=== PATIENT | male | born 1950 | race Caucasian/White ===

== ENCOUNTER 2022-03-25 20:42 | Observation (INO) | payer OTHER ==
[2022-03-25 21:07] VITALS: BMI 32.6
[2022-03-25 23:23] LABS: BASO % 0.7 % (0-2.0); EOS % 2.3 % (0-4.5); HEMATOCRIT 52.5 % (35.4-49); HEMOGLOBIN 17.8 GM/dL (11.7-16.9); LYMPH % 20.8 % (8-40); MCHC 33.9 g/dl (32.0-35.9); MEAN CELL VOLUME 85.8 fl (80-96); MEAN PLT VOLUME 8.4 fl (7.5-11.1); MONO % 8.8 % (3.8-10.2); NEUT % 67.4 % (42.8-82.8); PLATELET COUNT 452 10^3/uL (134-434); RBC 6.12 M/mm3 (4.00-5.60); RDW 14.1 % (11.9-15.9); WHITE BLOOD COUNT 10.2 K/mm3 (4.0-10.0)
[2022-03-25 23:32] LABS: INR 0.93 (0.83-1.09); PROTHROMBIN TIME (PATIENT) 10.7 SEC (9.7-13.0)
[2022-03-25 23:35] LABS: ACTIVATED PTT 34.1 SECONDS (25.2-36.5)
[2022-03-25] MEDS ORDERED: IBUPROFEN 400 MG TABLET (FP) PO ONE (23:41)
[2022-03-25] MEDS ORDERED: GABAPENTIN 400 MG CAPSULE PO ONE (23:41)
[2022-03-25 23:44] LABS: CALCIUM 10.2 mg/dL (8.5-10.1)
[2022-03-25 23:45] LABS: ALBUMIN 3.9 g/dl (3.4-5.0)
[2022-03-25 23:48] LABS: CREATININE 1.1 mg/dL (0.55-1.3)
[2022-03-25 23:49] LABS: BILIRUBIN,TOTAL 0.4 mg/dL (0.2-1); TOT PROT 7.4 g/dl (6.4-8.2)
[2022-03-25 23:54] LABS: BLOOD UREA NITROGEN 19.7 mg/dL (7-18)
[2022-03-25] MEDS ORDERED: ASPIRIN 81 MG CHEWABLE TABLETS PO ONE (23:58)
[2022-03-26] MEDS ORDERED: FOLIC ACID INJECTION - 1 MG, THIAMINE HCL 100 MG, MULTIVIT INJECTION ADULT 10 ML in SOD... IVPB ONE (00:05)
[2022-03-26] MEDS ORDERED: IBUPROFEN 400 MG TABLET (FP) PO ONE (00:05)
[2022-03-26] MEDS ORDERED: GABAPENTIN 400 MG CAPSULE ONE (00:06)
[2022-03-26] MEDS ORDERED: ASPIRIN 81 MG CHEWABLE TABLETS ONE (00:07)
[2022-03-26 00:28] LABS: PH,URINE 7.5 (5.0-8.0); URINE APPEARANCE Error; URINE BILIRUBIN NEGATIVE (NEGATIVE); URINE COLOR YELLOW; URINE GLUCOSE (UA) NEGATIVE (NEGATIVE); URINE KETONE NEGATIVE (NEGATIVE); URINE LEUK ESTERASE NEGATIVE (NEGATIVE); URINE NITRITE NEGATIVE (NEGATIVE); URINE PROTEIN NEGATIVE (NEGATIVE); URINE UROBILINOGEN 0.2 mg/dL (0.2-1.0)
[2022-03-26] MEDS ORDERED: CEFTRIAXONE 1 GM/50 ML BAG ONE (02:33)
[2022-03-26] MEDS ORDERED: SODIUM CHLORIDE 0.45% 1,000 ML IV SCH (03:00)
[2022-03-26] MEDS: ENOXAPARIN NA (PORCINE) 40 MG/0.4 ML DISP.SYRIN SQ SCH (09:38)
[2022-03-26 11:13] LABS: COCAINE, UR NEGATIVE (NEGATIVE); OPIATES, URI NEGATIVE (NEGATIVE); PHENCYCLIDINE,URINE NEGATIVE (NEGATIVE); URINE BARBITURATES NEGATIVE (NEGATIVE); URINE BENZODIAZEPINES NEGATIVE (NEGATIVE)
[2022-03-26 11:18] LABS: METHADONE, UR NEGATIVE (NEGATIVE); URINE AMPHETAMINES NEGATIVE (NEGATIVE)
[2022-03-26 11:36] LABS: BASO % 0.6 % (0-2.0); EOS % 2.1 % (0-4.5); HEMATOCRIT 48.9 % (35.4-49); HEMOGLOBIN 16.7 GM/dL (11.7-16.9); LYMPH % 23.2 % (8-40); MCH 29.1 pg (25.7-33.7); MCHC 34.2 g/dl (32.0-35.9); MEAN CELL VOLUME 85.1 fl (80-96); MONO % 10.9 % (3.8-10.2); NEUT % 63.2 % (42.8-82.8); PLATELET COUNT 388 10^3/uL (134-434); RBC 5.75 M/mm3 (4.00-5.60)
[2022-03-26 11:40] LABS: BLOOD UREA NITROGEN 21.2 mg/dL (7-18)
[2022-03-26 11:41] LABS: CALCIUM 9.2 mg/dL (8.5-10.1)
[2022-03-26 11:42] LABS: ALBUMIN 3.4 g/dl (3.4-5.0)
[2022-03-26 11:44] LABS: CREATININE 0.9 mg/dL (0.55-1.3)
[2022-03-26 11:45] LABS: BILIRUBIN,TOTAL 0.5 mg/dL (0.2-1)
[2022-03-26 11:46] LABS: TOT PROT 6.4 g/dl (6.4-8.2)
[2022-03-26] MEDS: ACETAMINOPHEN 325 MG TABLET (FP) PO PRN (18:09)
[2022-03-26] MEDS ORDERED: ATORVASTATIN CA 40 MG TABLET (FP) PO SCH (22:00)
[2022-03-27] MEDS: ACETAMINOPHEN 325 MG TABLET (FP) PO PRN ×2 (00:10→09:08)
[2022-03-27 08:10] LABS: BASO % 0.5 % (0-2.0); EOS % 2.6 % (0-4.5); HEMATOCRIT 46.8 % (35.4-49); HEMOGLOBIN 15.6 GM/dL (11.7-16.9); LYMPH % 26.1 % (8-40); MCH 28.5 pg (25.7-33.7); MCHC 33.3 g/dl (32.0-35.9); MEAN CELL VOLUME 85.6 fl (80-96); MEAN PLT VOLUME 8.1 fl (7.5-11.1); MONO % 10.6 % (3.8-10.2); NEUT % 60.2 % (42.8-82.8); PLATELET COUNT 349 10^3/uL (134-434); RBC 5.47 M/mm3 (4.00-5.60); RDW 13.7 % (11.9-15.9); WHITE BLOOD COUNT 7.2 K/mm3 (4.0-10.0)
[2022-03-27 08:12] LABS: ALBUMIN 3.2 g/dl (3.4-5.0); BLOOD UREA NITROGEN 17.9 mg/dL (7-18); CALCIUM 9.1 mg/dL (8.5-10.1); MAGNESIUM 1.9 mg/dL (1.8-2.4)
[2022-03-27 08:15] LABS: CREATININE 0.9 mg/dL (0.55-1.3); PHOSPHOROUS 3.2 mg/dL (2.5-4.9)
[2022-03-27 08:17] LABS: BILIRUBIN,TOTAL 0.9 mg/dL (0.2-1); CHOLESTEROL 159 mg/dL (50-200); TOT PROT 5.8 g/dl (6.4-8.2)
[2022-03-27 08:18] LABS: LDL CHOLESTEROL (ONLY SJRH) 103 mg/dL (5-100); TRIGLYCERIDES 99 mg/dL (0-150)
[2022-03-27 08:20] LABS: HDL CHOLESTEROL 41 mg/dL (40-60)
[2022-03-27 08:55] VITALS: RESP 17
[2022-03-27] MEDS: ASPIRIN 81 MG CHEWABLE TABLETS PO SCH ×2 (09:07→09:19)
[2022-03-27] MEDS: ENOXAPARIN NA (PORCINE) 40 MG/0.4 ML DISP.SYRIN SQ SCH ×2 (09:07→09:18)
[2022-03-27 14:33] VITALS: BP 140/84; PULSE 70; TEMP 98.3
== END 2022-03-27 16:14 | disposition home or self-care (01) ==
LOC: JER 20:42 → JERBED 03-26 00:55 → J4S 03-26 04:30
PROVIDERS: ADMIT Internal Medicine; ATTEND Internal Medicine
PROC: 3E033GC Introduction of Other Therapeutic Substance into Peripheral Vein, Percutaneous Approach (ICD-10-PCS; principal; 2022-03-26)
PROC: 3E0337Z Introduction of Electrolytic and Water Balance Substance into Peripheral Vein, Percutaneous Approach (ICD-10-PCS; 2022-03-26)
DX: R41.0 Disorientation, unspecified (principal); R41.3 Other amnesia; E86.0 Dehydration; I10 Essential (primary) hypertension; D72.829 Elevated white blood cell count, unspecified; D75.1 Secondary polycythemia; D68.59 Other primary thrombophilia; E66.8 Other obesity; Z68.34 Body mass index [BMI] 34.0-34.9, adult
CPT/HCPCS: 0241U-QW; 36415; 70450-TC; 70551-TC; 71045-TC-FY; 80053; 80061; 80307; 81003; 82570; 82607; 82746; 83735; 84100; 84300; 84439; 84443; 84484; 85025; 85610; 85730; 86780; 87086; 93005; 93010; 96361; 96365; 99285-25; G0378

== ENCOUNTER 2022-04-03 14:26 | Observation (INO) | payer OTHER ==
[2022-04-03] MEDS ORDERED: SODIUM CHLORIDE 500 ML IV STA (14:31)
[2022-04-03] MEDS ORDERED: ONDANSETRON 4 MG/2 ML VIAL IVPUSH ONE (14:32)
[2022-04-03 14:37] VITALS: BMI 28.8
[2022-04-03 14:46] LABS: HEMATOCRIT 51.9 % (35.4-49); HEMOGLOBIN 18.2 G/dL (11.7-16.9); MCH 29.6 pg (25.7-33.7); MEAN CELL VOLUME 84.6 fl (80-96); MEAN PLT VOLUME 7.9 fl (7.5-11.1); PLATELET COUNT 467.5 10^3/uL (134-434); RBC 6.13 10^6/uL (4.00-5.60); RDW 14.4 % (11.9-15.9); WHITE BLOOD COUNT 17.6 10^3/uL (4.0-10.8)
[2022-04-03] MEDS ORDERED: ONDANSETRON 4 MG/2 ML VIAL ONE (14:48)
[2022-04-03 15:03] LABS: ALBUMIN 4.1 g/dl (3.4-5.0); BILIRUBIN,TOTAL 1.3 mg/dl (0.2-1); CALCIUM 9.7 mg/dl (8.5-10); MAGNESIUM 1.8 mg/dL (1.8-2.4); TOT PROT 7.3 g/dl (6.4-8.2)
[2022-04-03 15:13] LABS: PLATELET ESTIMATE INCREASED
[2022-04-03 19:27] VITALS: RESP 18
[2022-04-03] MEDS ORDERED: DOCUSATE SODIUM 100 MG CAPSULE (FP) PO PRN (20:30)
[2022-04-03] MEDS ORDERED: ACETAMINOPHEN 325 MG TABLET (FP) PO PRN (20:30)
[2022-04-03] MEDS: CLINDAMYCIN 600MG PREMIX IVPB 600 MG/50 ML BAG IVPB SCH (23:39)
[2022-04-04] MEDS: ACETAMINOPHEN 1000 MG/100 ML BAG IVPB PRN ×2 (00:50→12:49)
[2022-04-04] MEDS ORDERED: FAMOTIDINE 20 MG/50 ML IVPB 20 MG/50 ML MG IVPB ONE (00:54)
[2022-04-04] MEDS: CLINDAMYCIN 600MG PREMIX IVPB 600 MG/50 ML BAG IVPB SCH ×2 (04:28→09:14)
[2022-04-04] MEDS ORDERED: oxyCODONE HCL 5 MG TABLET PO PRN (06:00)
[2022-04-04 08:31] LABS: INR 1.04 (0.83-1.09)
[2022-04-04 08:34] LABS: ACTIVATED PTT 33.8 SECONDS (25.2-36.5)
[2022-04-04 08:35] LABS: CALCIUM 9.4 mg/dl (8.5-10); CREATININE 1.2 mg/dl (0.55-1.3)
[2022-04-04 09:53] LABS: BASO % 0.5 % (0-2.0); HEMATOCRIT 46.6 % (35.4-49); HEMOGLOBIN 15.4 GM/dL (11.7-16.9); LYMPH % 17.5 % (8-40); MCH 28.7 pg (25.7-33.7); MCHC 33.1 g/dl (32.0-35.9); MEAN CELL VOLUME 86.8 fl (80-96); MEAN PLT VOLUME 8.1 fl (7.5-11.1); MONO % 11.7 % (3.8-10.2); NEUT % 69.3 % (42.8-82.8); PLATELET COUNT 468 10^3/uL (134-434); RBC 5.37 M/mm3 (4.00-5.60); RDW 13.7 % (11.9-15.9)
[2022-04-04 15:01] VITALS: BP 131/63; PULSE 80; TEMP 98.9
[2022-04-04] MEDS ORDERED: ATORVASTATIN CA 40 MG TABLET (FP) PO SCH (22:00)
== END 2022-04-04 16:20 | disposition home or self-care (01) ==
LOC: FER 14:26 → FM/S 18:49
PROVIDERS: ADMIT Internal Medicine; ATTEND Internal Medicine
PROC: 3E03329 Introduction of Other Anti-infective into Peripheral Vein, Percutaneous Approach (ICD-10-PCS; principal; 2022-04-03)
PROC: 3E0337Z Introduction of Electrolytic and Water Balance Substance into Peripheral Vein, Percutaneous Approach (ICD-10-PCS; 2022-04-03)
PROC: 3E033GC Introduction of Other Therapeutic Substance into Peripheral Vein, Percutaneous Approach (ICD-10-PCS; 2022-04-03)
PROC: 3E033NZ Introduction of Analgesics, Hypnotics, Sedatives into Peripheral Vein, Percutaneous Approach (ICD-10-PCS; 2022-04-03)
DX: R07.2 Precordial pain (principal); R11.2 Nausea with vomiting, unspecified; R77.8 Other specified abnormalities of plasma proteins
CPT/HCPCS: 36415; 71045-TC-FY; 71275-TC; 80048; 80053; 83735; 84484; 85025; 85610; 85730; 93005; 96361; 96365; 96375; 99285-25; C9803-CS; G0378; Q9967; U0003; U0005

== ENCOUNTER 2022-10-31 10:24 | Emergency (ER) | payer OTHER ==
[2022-10-31 10:35] VITALS: BP 134/76; PULSE 84; RESP 18; TEMP 98.2; BMI 33.5
[2022-10-31] MEDS ORDERED: ACETAMINOPHEN 500 MG TABLET (FP) PO ONE (11:12)
[2022-10-31] MEDS ORDERED: ACETAMINOPHEN 500 MG TABLET (FP) ONE (11:31)
== END 2022-10-31 12:52 | disposition home or self-care (01) ==
LOC: JERFT 10:24 → JER 10:24 → JERFT 12:52
DX: S60.012A Contusion of left thumb without damage to nail, initial encounter (principal); M79.645 Pain in left finger(s); R22.32 Localized swelling, mass and lump, left upper limb; W01.0XXA Fall on same level from slipping, tripping and stumbling without subsequent striking against object, initial encounter
CPT/HCPCS: 73130-TC-LT-FY; 99283-25